=== PATIENT | female | born 1965 | race Caucasian/White ===

== ENCOUNTER 2018-07-23 14:30 | Outpatient (RCR) | payer OTHER, SELFPAY ==
--- NOTE | 2018-07-03 08:38 | HP.OTEVAL ---
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 Date of Evaluation: 07/02/18 Occupational Therapist: Alba Goss, OTR/Arthur, CHT - Subjective Subjective: pt. presents today with sore thumb following an injury (fell down two steps and caught self with hand outstretched with the thumb in extended position) that initially occured in august 2017. pt. reports during recent months she has been reinjuring the thumb via picking up heavy objects and falling again (face forward). pt. recently recieved a cortisone shot to help with the pain which was on 05/21/18. pt. here today to recieve exercises to strengthen the thumb and decrease pain. - Pain L hand 1 Pain Intensity Range: 0, 1, 2, 3, 4, 5, 6 - Objective Objective/Observation: OT noted that pt. subluxed at the MP, causing the IP to be slightly hyperextend at the IP joint during strength tests. pt. reports that hand gets really swollen at times and gets so painful that she drops objects. - ROM MP: 0/31 L and 0/40 in R IP: 0/40 L and 0/81 in R ROM Comments: pain with ROM in L - Strength Brickmason Helper: 37# in L and 56# in R Lateral Pinch: 11# in L and 15# in R Tripod Pinch: 11# in L and 15# in R Strength Comments: low pain during the pinch strength tests - Quick DASH-Disab of Arm,Shoulder& Hand Quick DASH Score: 22.7250 - Goals Goal:: Patient will increase overall superintendent plant protection strength by 10 lbs. by completing strengthening exercises and stretches in order to complete BADL?s and IADL?s. Patient will improve lateral and tripod grasps by 5 lbs. by completing strengthening and stretching exercises in order to complete BADL?s and IADL?s. Goal:: Patient will increase ROM in MP and IP joint of L thumb by 10 degrees by completing strengthening and stretching exercises in order to complete BADL?s and IADL?s. Goal:: Patient will have decreased swelling and report overall decrease in pain of <3 in order to complete BADL?s and IADL?s. Goal:: Patient will demo understanding of joint protection and ECM recommendations for increase I with BADL?s and IADL?s. Goal:: patient will report completion of and demo understanding of HEP for increased I with BADL's and IADL's. - Rehabilitation General Assessment: pt. 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 pt. presents with decreased strength, ROM, increased pain, and reports of increased swelling and decreased ability to complete BADL's and IADL's. pt. will benefit from OT services 1-2x/wk for 2-3 weeks. Today pt. educated about joint protection and ECM, thumb exercises, and icing methods. Rehabilitation Potential: Questionable - Anticipated Interventions Anticipated Interventions: A/AAROM/PROM, Strengthening, Edema Control, Triggerpoint Release, Modalities, Orthoses, Joint Protection/Energy Conservation, Ergonomic Education, ADL Training, Home Program - Visit Plan Frequency: 1-2x /Week Duration: 2-3 weeks TEXT: Thank you for the opportunity to evaluate your patient. For Medicare and Medicare HMO plans, please review the plan of care and approve it. It will need to be FAXED BACK to us at [phone] for Medicare purposes. Please let me know if there are questions or concerns regarding this plan of care. Physician Signature: Date:
--- NOTE | 2018-07-23 14:56 | HP.OTDCSUM ---
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 Please see the following information for a summary of their discharge status. - Overall Improvement % Improvement: 90 - Objective Objective/Function: left financial quantitative analyst 45# increase from 31#. left later pinch 14# increase from 11#. Left tripod 8# a decrease- - Goals Patient Goals: Regain Strength, Decrease Pain, Decrease Swelling/Stiffness, Use Hand/Wrist/Arm Normally Again, Increase ROM, Be More Independent in ADLS, Resume Former Household Responsibilities (Cooking,Cleaning,Yard, etc.), Resume Hobbies Goal:: Patient will increase overall financial quantitative analyst strength by 10 lbs. by completing strengthening exercises and stretches in order to complete BADL?s and IADL?s. Patient will improve lateral and tripod grasps by 5 lbs. by completing strengthening and stretching exercises in order to complete BADL?s and IADL?s. Goal:: Patient will increase ROM in MP and IP joint of L thumb by 10 degrees by completing strengthening and stretching exercises in order to complete BADL?s and IADL?s. Goal:: Patient will have decreased swelling and report overall decrease in pain of <3 in order to complete BADL?s and IADL?s. Goal:: Patient will demo understanding of joint protection and ECM recommendations for increase I with BADL?s and IADL?s. Goal:: patient will report completion of and demo understanding of HEP for increased I with BADL's and IADL's. - Plan Plan: D/C - D/C Information Discharge Comments: Pt was 6 OT sessions- Therapist ed. pt on joint protection and energy conservation tasks- pt also given information on home paraffin so she can use PRN. pt has met goals in OT and is D/C at this time. If there are questions or concerns regarding this patient's occupational therapy, please fell free to call me at [phone]. Thank you for the referral of this patient. Sincerely, Alba Goss, OTR/L, CHT
== END 2018-07-23 19:00 | disposition home or self-care (01) ==
LOC: OT 14:30
PROVIDERS: Family Provider Internal Medicine; PCP Internal Medicine
DX: M18.12 Unilateral primary osteoarthritis of first carpometacarpal joint, left hand (principal)
CPT/HCPCS: 97035; 97166; 97530

== ENCOUNTER → 2021-03-26 16:12 | Outpatient (CLI) | payer OTHER, SELFPAY ==
--- NOTE | 2021-03-26 16:34 | MRI_ITS ---
STUDY: MRI LEFT ANKLE WITHOUT CONTRAST REASON FOR EXAM: Female, 55 years old. LEFT ACHILLES TENDONITIS WITH HEEL SPUR TECHNIQUE: Standardized fat and water weighted pulse sequences were obtained in all 3 orthogonal planes. COMPARISON: None. FINDINGS: Mild Achilles tendinosis. Tiny Achilles enthesophyte. Small plantar spur. Normal plantar fascia. Normal muscles of the midfoot/hindfoot. Mild tibiotalar cartilage loss. Minimal subtalar cartilage loss. Mild calcaneocuboid arthrosis. Mild talonavicular arthrosis. Small dorsal navicular ossicle versus chronic avulsion (sagittal image 11). Normal navicular cuneiform joints. Mild tarsometatarsal joint arthrosis. No acute fracture, dislocation or cortical destruction. Minimal talus pulmonary edema (sagittal image 9 series 9). Hindfoot valgus. Small tibiotalar/subtalar joint effusion. Minimal soft tissue swelling surrounds the ankle. No solid, cystic or lipomatous lesions. Normal extensor tendons. Moderate posterior tibialis and flexor tenosynovitis. Minimal peroneus longus and brevis tenosynovitis. Normal distal tibiofibular syndesmotic ligamentous complex. Mild chronic lateral ankle ligament thickening. Normal subtalar ligaments and sinus tarsi. Normal deltoid ligamentous complexes. Normal plantar calcaneonavicular (spring) ligament. Normal Lisfranc ligament. MRI/Lower Ext Joint Only (Routine) IMPRESSION: Moderate posterior tibialis and flexor tenosynovitis Minimal peroneus longus and brevis tenosynovitis Mild chronic lateral ankle sprains Mild Achilles tendinosis with tiny enthesophyte and small plantar spur Mild multiregional osteoarthritic features, as above, with hindfoot valgus Small ankle joint effusion with mild soft tissue swelling Electronically Signed: Jose Jorge DO at 8:19 EDT Tel , Service support ,
== END ==
PROVIDERS: PCP Internal Medicine; Referring Provider Podiatrist; Visit Provider Podiatrist
DX: M76.62 Achilles tendinitis, left leg (principal); M77.32 Calcaneal spur, left foot
CPT/HCPCS: 73721

== ENCOUNTER 2024-07-28 08:37 | Outpatient (RCR) | payer OTHER, SELFPAY ==
--- NOTE | 2024-07-28 09:46 | HP.PTEVAL_ITS ---
Patient's Visit Information Visit Information Visit Information: HAZEL DIAZ is a 58 year old F referred to Physical Therapy by Dr. Jennifer Shaikh MD with a diagnosis of BPPV. Date of Evaluation: 07/28/24 Physical Therapist: Jose Medina, DPT, OCS, CSCS Visit Plan Frequency: 1-2x /Week Duration: 2-4 Weeks Plan: No evidence of vestibular deficits today outside of subjective consistent with BPPV possibly resolved with radiation positioning. f/u 2 weeks to ensure resolved or pt to call prior if it returns for positional checks. Pt will wait a few days and try some rolling and bending and looking up habituation to ensure improvement. Will see ENT prior to next session. Subjective Subjective: Has vertigo. Asked doctor to send her in. Last August on a plane got tremendous pain in ear and then got dizzy afterwards. Had it bad last two months but had radiation last week and now it seems gone. Prior avoided bending and lying and head movements b/c it spins. It was short duration. [place] in between those episodes. Sleep is OK. Will see ENT to make sure ear is OK. Radiation is for L breast CA and just started but has to lie back for that. Has tried home positional treatment which did not always work. 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 Working out is awkward. Normal workout is walking and ground stretching and avoids ground as it makes her dizzy. Arts and crafts are normal, reading is normal. No falls but near when is dizzy, gets up slowly. DHI filled out as prior to symptoms resolving, has been good nearly 100% b gloria for last two days since radiation treatment. Objective Objective: Walks into PT I, transfers chair and bed I. Steps reciprocal with one rail due to confidence. Cervical and UE AROM WFL and without much hesitation today, no symptoms. sensation UE WNL to gross light touch. - B hallpike martin testing, - roll test. Oculomotor: - skew eye deviation - ocular tilt - head thrust. Normal pursuit and saccades adn VOR without symptoms today. no nystagmus with head shake or spontaneous. Balance/Special Test Scores Functional Gait Assessment Score: 28 % Disability: 6.6700 CATSIB Score (Max score 120 seconds): 120 Dizziness Score: 20 Goals Goal 1:: 2 weeks of no dizzyness and good balance subjectively to match current objective presentation. Goal Time Frame: 4-6 Weeks Goal 2:: I appropriate management of dizzyness Goal Time Frame: 4-6 Weeks Goal 3:: Pt feel confident with lying in bed and head movements Goal Time Frame: 4-6 Weeks Rehabilitation Potential Physical Therapy Diagnosis: No evidence today of vestibular problems but subjective is positive and would like to build consistency with being improved. Rehabilitation Potential: Good Anticipated Interventions Patient/Client Instruction: Educate patient on: Condition and Plan of Care For the Purpose of:: To increase tolerance to activity/condition/position Therapeutic Exercise to Include: Balance training Comment: posotiional and vestibular as needed For the Purpose of:: To increase tolerance to activity/condition/position Text: Thank you for the opportunity to evaluate your patient. For Medicare and Medicare HMO plans, please review the plan of care and approve it. It will need to be FAXED BACK to us at [phone] for Medicare purposes. For Medicare only, by signing this I certify the plan of care. Please let me know if there are questions or concerns regarding this plan of care. Physician Signature: Dat e:
--- NOTE | 2024-10-19 12:46 | HP.PT.NRP ---
Patient Information Patient Information: HAZEL DIAZ was seen in my office for initial evaluation on 07/28/24. The following Plan of Care was established for this patient: POC Established Initial Frequency: 1-2x /Week Initial Duration: 2-4 Weeks Anticipated Interventions Patient/Client Instruction: Educate patient on: Condition and Plan of Care For the Purpose of:: To increase tolerance to activity/condition/position Therapeutic Exercise to Include: Balance training For the Purpose of:: To increase tolerance to activity/condition/position Last Seen Last Seen: This patient was last seen in our office 07/28/24. Pertinent comments regarding their Physical therapy will appear below: Pt seen for IE and no problems noted. Plan was to f/u two weeks later to ensure improvement and abolishment but patient did not attend that visit. At this point, it has been over 2 months and I will discontinue from my care. At this point I will be discontinuing this patient from physical therapy. I would be happy to see this patient again in the future if found appropriate by the physician. Thank you! Jose Medina, DPT, OCS, CSCS Balance/Gait/Functional tests Balance/Special Test Scores Functional Gait Assessment Score: 28 % Disability: 6.6700 CATSIB Score (Max score 120 seconds): 120 Dizziness Score: 20
== END 2024-07-28 19:00 | disposition home or self-care (01) ==
LOC: PT 08:37
PROVIDERS: PCP Internal Medicine; Referring Provider Internal Medicine; Visit Provider Internal Medicine
DX: H81.12 Benign paroxysmal vertigo, left ear (principal)
CPT/HCPCS: 97161